=== PATIENT | male | born 1975 | race African-American/Black ===

== ENCOUNTER 2019-09-22 00:26 | Emergency (ER) | payer OTHER ==
[2019-09-22] MEDS ORDERED: SODIUM CHLORIDE 0.9% 1,000 ML IV STA (00:58)
[2019-09-22] MEDS ORDERED: levETIRAcetam IV 1,000 MG in SALINE 1 100ML.BAG IVPB ONE (01:15)
[2019-09-22 01:25] LABS: Basophils % (A) 1 %; Eosinophils # (A) 0.2 k/uL (0-0.7); Eosinophils % (A) 8 %; HCT 34.4 % (39.0-53.0); HGB 11.3 gm/dL (13.0-17.5); Lymphocytes % (A) 32 %; MCH 31.7 pg (25.0-35.0); MCHC 32.8 g/dL (31.0-37.0); MCV 96.7 fL (80.0-100.0); Mean Platelet Volume 7.6; Monocytes # (A) 0.3 k/uL (0-1.0); Monocytes % (A) 11 %; Neutrophils # (A) 1.4 k/uL (1.3-7.7); Neutrophils % (A) 45 %; Platelet Count 196 k/uL (150-450); RBC 3.55 m/uL (4.30-5.90); RDW 12.9 % (11.5-15.5)
--- NOTE | 2019-09-22 01:25 | ED ---
Seizure HPI - General Chief Complaint: Seizure Stated Complaint: Seizure Time Seen by Provider: 09/22/19 00:32 Source: patient, EMS Mode of arrival: EMS Limitations: no limitations - History of Present Illness Initial Comments: 44 year-old male patient presents to the emergency department for evaluation after having a seizure. [facility] Patient had a seizure yesterday. If staff reported today had a seizure lasting about 5 minutes. He does have a history of epilepsy. Patient does take Keppra, for some reason he did miss his doses on 09/19. Upon arrival patient is drowsy. He denies any current headache, blurred vision, double vision, dizziness, or weakness. Denies any chest pain or shortness of breath. Patient denies any recent rash, cough, shortness of breath, abdominal pain, nausea, vomiting, diarrhea, constipation, back pain, hematuria, dysuria, urinary urgency, urinary frequency, headache, visual changes, or any other complaints. - Related Data Previous Rx's Medication Instructions Recorded levETIRAcetam [Keppra] 1,000 mg PO Q12HR #60 tab 09/22/19 Allergies Allergy/AdvReac Type Severity Reaction Status Date / Time No Known Allergies Allergy Verified 09/22/19 00:57 Review of Systems ROS Statement: Those systems with pertinent positive or pertinent negative responses have been documented in the HPI. ROS Other: All systems not noted in ROS Statement are negative. Past Medical History Past Medical History: Seizure Disorder History of Any Multi-Drug Resistant Organisms: None Reported Additional Past Surgical History / Comment(s): right arm surgery, neck surgery Past Psychological History: Bipolar, Depression Smoking Status: Current every day smoker Past Alcohol Use History: Abuse Past Drug Use History: Cocaine, Marijuana General Exam Limitations: no limitations General appearance: alert, in no apparent distress, other (This is a well-devel oped, well-nourished adult male patient in no acute distress. Vital signs upon presentation are temperature 98.3F, pulse 49, respirations 16, blood pressure 96/63, pulse ox 100% on room air.) Eye exam: Present: normal appearance, PERRL, EOMI. Absent: scleral icterus, conjunctival injection, periorbital swelling ENT exam: Present: normal exam, normal oropharynx, mucous membranes moist Respiratory exam: Present: normal lung sounds bilaterally. Absent: respiratory distress, wheezes, rales, rhonchi, stridor Cardiovascular Exam: Present: regular rate, normal rhythm, normal heart sounds. Absent: systolic murmur, diastolic murmur, rubs, gallop, clicks Neurological exam: Present: alert, oriented X3, CN II-XII intact, other (Strength in all 4 extremities is 5/5.) Psychiatric exam: Present: normal affect, normal mood Skin exam: Present: warm, dry, intact, normal color. Absent: rash Course Vital Signs 09/22/19 09/22/19 00:28 01:57 Temperature 98.3 F Pulse Rate 49 L 47 L Respiratory 16 16 Rate Blood Pressure 96/63 107/60 O2 Sat by Pulse 100 99 Oximetry Medical Decision Making - Medical Decision Making 44-year-old male patient presents to the emergency department today for evaluation after having a seizure. Patient states that he is currently a patient states it has been there for 8 days. States the couple of days ago he did miss his doses. States he usually takes 1000 mg twice a day but he is taking 500 because he brought the wrong bottle with him to [place]. Physical examination is unremarkable. He is neurologically intact with no focal deficits. Patient did have a fall and hit his head was complaining of neck pain so CT brain/C-spine was ordered which was negative. Labs reviewed and are unremarkable. I did discuss findings and results with the patient. She did re ceive a loading dose of Keppra here in the department. He'll be discharged with a new prescription for 1000 mg twice daily. He is instructed to follow-up with his neurologist for further evaluation as soon as possible. Return parameters were discussed in detail. He verbalizes understanding and agrees with this plan. - Lab Data Result diagrams: 09/22/19 00:54 09/22/19 00:54 Lab Results 09/22/19 09/22/19 09/22/19 Range/Units 00:54 00:54 01:08 WBC 3.0 L (3.8-10.6) k/uL RBC 3.55 L (4.30-5.90) m/uL Hgb 11.3 L (13.0-17.5) gm/dL Hct 34.4 L (39.0-53.0) % MCV 96.7 (80.0-100.0) fL MCH 31.7 (25.0-35.0) pg MCHC 32.8 (31.0-37.0) g/dL RDW 12.9 (11.5-15.5) % Plt Count 196 (150-450) k/uL Neutrophils % 45 % Lymphocytes % 32 % Monocytes % 11 % Eosinophils % 8 % Basophils % 1 % Neutrophils # 1.4 (1.3-7.7) k/uL Lymphocytes # 1.0 (1.0-4.8) k/uL Monocytes # 0.3 (0-1.0) k/uL Eosinophils # 0.2 (0-0.7) k/uL Basophils # 0.0 (0-0.2) k/uL Sodium 137 (137-145) mmol/L Potassium 3.7 (3.5-5.1) mmol/L Chloride 104 (98-107) mmol/L Carbon Dioxide 27 (22-30) mmol/L Anion Gap 6 mmol/L BUN 20 (9-20) mg/dL Creatinine 0.80 (0.66-1.25) mg/dL Est GFR (CKD-EPI)AfAm >90 (>60 ml/min/1.73 sqM) Est GFR (CKD-EPI)NonAf >90 (>60 ml/min/1.73 sqM) Glucose 93 (74-99) mg/dL Calcium 8.6 (8.4-10.2) mg/dL Magnesium 2.0 (1.6-2.3) mg/dL Total Bilirubin <0.1 L (0.2-1.3) mg/dL AST 23 (17-59) U/L ALT 14 (4-49) U/L Alkaline Phosphatase 70 (38-126) U/L Total Protein 6.3 (6.3-8.2) g/dL Albumin 3.7 (3.5-5.0) g/dL Urine Color Light Yellow Urine Appearance Clear (Clear) Urine pH 5.0 (5.0-8.0) Ur Specific [place] 1.008 (1.001-1.035) Urine Protein Negative (Negative) Urine Glucose (UA) Negative (Negative) Urine Ketones Negative (Negative) Urine Blood Negative (Negative) Urine Nitrite Negative (Negative) Urine Bilirubin Negative (Negative) Urine Urobilinogen <2.0 (<2.0) mg/dL Ur Leukocyte Esterase Negative (Negative) - EKG Data -: EKG Interpreted by Me EKG Comments: EKG obtained at 00 34 shows sinus bradycardia with a ventricular rate of 50, SD interval 192, QR [facility] 92, QT 442, QTc 402. - Radiology Data Radiology results: report reviewed, image reviewed CT brain suicide without contrast was obtained. Report was reviewed in its entirety. Impression by Dr. Zurita shows negative computed tomography scan of the brain. Spondylotic changes in the cervical spine. Previous surgery. No fracture seen. Disposition Clinical Impression: Seizure Disposition: HOME SELF-CARE Condition: Good Instructions (If sedation given, give patient instructions): Recurrent Seizures in Adults (ED) Additional Instructions: Increase fluids. Rest. Take keppra as directed. Return to the emergency department for any new, worsening, or concerning symptoms. Prescriptions: levETIRAcetam [Keppra] 1,000 mg PO Q12HR #60 tab Is patient prescribed a controlled substance at d/c from ED?: No Referrals: Nonstaff,Physician [Primary Care Provider] - 1-2 days Time of Disposition: 02:59
[2019-09-22 01:31] LABS: Appearance,Urine Clear (Clear); Bilirubin,Urine Negative (Negative); Blood,Urine Negative (Negative); Color,Urine Light Yellow; Glucose,Urine (UA) Negative (Negative); Ketones,Urine Negative (Negative); Leukocyte Esterase,Urine Negative (Negative); Nitrite,Urine Negative (Negative); Protein,Urine Negative (Negative); Specific Gravity,Urine 1.008 (1.001-1.035); Urobilinogen,Urine <2.0 mg/dL (<2.0)
[2019-09-22 01:32] LABS: ALT 14 U/L (4-49); AST 23 U/L (17-59); African American GFR (CKD) >90 (>60 ml/min/1.73 sqM); Albumin 3.7 g/dL (3.5-5.0); Alkaline Phosphatase 70 U/L (38-126); Anion Gap 6 mmol/L; Blood Urea Nitrogen 20 mg/dL (9-20); Calcium 8.6 mg/dL (8.4-10.2); Carbon Dioxide 27 mmol/L (22-30); Chloride 104 mmol/L (98-107); Glucose 93 mg/dL (74-99); Non-African American GFR(CKD) >90 (>60 ml/min/1.73 sqM); Potassium 3.7 mmol/L (3.5-5.1); Sodium 137 mmol/L (137-145); Total Bilirubin <0.1 mg/dL (0.2-1.3); Total Protein 6.3 g/dL (6.3-8.2)
--- NOTE | 2019-09-22 01:47 | CT ---
EXAMINATION TYPE: CT brain tonio wo con DATE OF EXAM: 09/22/2019 COMPARISON: HISTORY: Seizure Headache. Neck pain. CT DLP: 1306.1 mGycm Automated exposure control for dose reduction was used. Ventricles and sulci appear normal. There is no mass effect nor midline shift. There is no sign of in tracranial hemorrhage. Calvarium is intact. Cervical vertebra show some straightening. There is previous anterior fusion surgery at C3-4. There i s degenerative disc space narrowing at C4-5 and C5-6 with spurring of the endplates. There is multile tyrone mild cervical facet arthropathy. The skull base is intact. IMPRESSION: Negative CT scan of the brain. Spondylotic changes in the cervical spine. Previous surgery. No fracture seen.
[2019-09-22 03:22] VITALS: BP 113/71; PULSE 57; RESP 18; TEMP 97.7
== END 2019-09-22 03:27 | disposition home or self-care (01) ==
LOC: EC 00:26
DX: G40.909 Epilepsy, unspecified, not intractable, without status epilepticus (principal); F17.200 Nicotine dependence, unspecified, uncomplicated
CPT/HCPCS: 36415; 93005; 80053; 80177; 83735; 85025; 81003; 72125; 70450; 99284; 96365; 96361; J1953